=== PATIENT | female | born 1940 | race Caucasian/White ===

== ENCOUNTER 2017-06-19 09:51 | Inpatient (IN) | payer MEDICARE, MEDICAID ==
[~2017-06-19] VITALS: Ht 175.3 cm; Wt 80.7 kg
--- NOTE | 2017-06-19 10:13 | NUR ---
PT IS IN ROOM #2B. DR CASTELLANOS EVALUATED THE PT.
[2017-06-19 10:56] LABS: BASOPHILS % (AUTO) 0.9 % (0.0-2.0); EOSINOPHILS # (AUTO) 0.1 K/uL (0.0-0.7); EOSINOPHILS % (AUTO) 2.5 % (0.0-7.0); HEMATOCRIT 39.5 % (31.2-41.9); HEMOGLOBIN 13.7 g/dL (10.9-14.3); LYMPHOCYTES # (AUTO) 0.8 K/uL (20.0-40.0); LYMPHOCYTES % (AUTO) 17.6 % (20.5-51.5); MEAN CORPUSCULAR HEMOGLOBIN 30.7 uug (24.7-32.8); MEAN CORPUSCULAR HGB CONC 35 g/dL (32.3-35.6); MEAN CORPUSCULAR VOLUME 88.8 fL (75.5-95.3); MONOCYTES # (AUTO) 0.3 K/uL (2.0-10.0); MONOCYTES % (AUTO) 6.7 % (0.0-11.0); NEUTROPHILS # (AUTO) 3.2 K/uL (1.8-8.9); NEUTROPHILS % (AUTO) 72.3 % (38.5-71.5); PLATELET COUNT (AUTO) 248 K/uL (179-408); RED BLOOD CELL COUNT(AUTO) 4.45 MIL/uL (3.63-4.92); WHITE BLOOD COUNT (AUTO) 4.4 K/uL (3.8-11.8)
[2017-06-19 11:16] LABS: ETHANOL < 3 MG/DL (0-0)
[2017-06-19 12:18] LABS: CARBON DIOXIDE 29 mmol/L (21-32); CHLORIDE 104 mmol/L (98-107); CREATININE 0.9 mg/dL (0.6-1.3); GLUCOSE 99 mg/dL (74-106); POTASSIUM 4.4 mmol/L (3.5-5.1); UREA NITROGEN, BLOOD 12 mg/dL (7-18)
[2017-06-19 12:22] LABS: ALANINE AMINOTRANSFERASE 17 U/L (14-59); ALKALINE PHOSPHATASE 88 U/L (50-136); ASPARTATE AMINOTRANSFERASE 18 U/L (15-37); BILIRUBIN,DIRECT 0.2 mg/dL (0.0-0.2); BILIRUBIN,TOTAL 1.2 mg/dL (0.2-1.0); TOTAL PROTEIN, SERUM 7.3 g/dL (6.4-8.2)
[2017-06-19 12:23] LABS: ACETAMINOPHEN < 2.0 ug/mL (10-30)
[2017-06-19] MEDS ORDERED: ATOR10TA PO (12:37)
[2017-06-19 12:55] LABS: *BILIRUBIN,URIN NEGATIVE (NEGATIVE); *BLOOD, URINE NEGATIVE (NEGATIVE); *CLARITY,URINE CLEAR (CLEAR); *COLOR,URINE YELLOW (YELLOW); *KETONES,URINE NEGATIVE (NEGATIVE); *PROTEIN,URINE NEGATIVE (NEGATIVE); *UROBILINOGEN,URINE 0.2 E.U./dl (NORMAL); LEUKOCYTE ESTERASE ,URINE TRACE (NEGATIVE); NITRITE, URINE NEGATIVE (NEGATIVE); UGLUCOSE NEGATIVE (NEGATIVE)
[2017-06-19 12:59] LABS: RBC,URINE 0-3 /HPF (0-3)
[2017-06-19 13:00] LABS: BACTERIA,URINE NONE SEEN /HPF (NONE SEEN); MUCUS,URINE FEW /LPF (0-FEW); RENAL EPITHELIAL CELLS,URINE FEW /LPF (NONE SEEN); SQUAMOUS EPITHELIAL CELL,UR FEW /HPF (NONE SEEN)
--- NOTE | 2017-06-19 13:12 | NUR ---
REPORT WAS GIVEN TO ERNESTIAN M/S. PT WAS TRANSFERDD TO M/S ROOM #219.
--- NOTE | 2017-06-19 14:00 | NUR ---
Admission Note: Patient was received from the emergency room, and admitted to floor. Patient is able to ambulate to the bathroom. Son Armando Anguiano [phone], stated he wants patient to be sent to SNF, stated he is the advance directive person to be notified and power of [employer] of her property. He states he wants everything done for the patient, Charge Nurse states there is a POLST, and patient is DNR.
[2017-06-19 14:23] VITALS: BP 145/71
[2017-06-19 15:52] LABS: *AMPHETAMINE, URINE NEGATIVE (NEGATIVE); *BARBITURATE, URINE NEGATIVE (NEGATIVE); *CANNABINOID, URINE NEGATIVE (NEGATIVE); *COCCAINE, URINE NEGATIVE (NEGATIVE); *OPIATE, URINE NEGATIVE (NEGATIVE); *PHENCYCLIDINE SCREEN,URINE NEGATIVE (NEGATIVE)
[2017-06-19] MEDS ORDERED: ZOLPIDEM 5 MG TABLET PO PRN (17:30)
[2017-06-19] MEDS ORDERED: ACETAMINOPHEN 325 MG TABLET PO PRN (17:30)
[2017-06-19] MEDS ORDERED: ONDANSETRON 4 MG/2 ML VIAL IV PRN (17:30)
[2017-06-19 20:00] VITALS: BP 146/59
--- NOTE | 2017-06-19 20:00 | NUR ---
PT IS AWAKE IN BED, DENIES PAIN OR DISCOMFORT. SHE'S NOTED WITH MILD CONFUSION. CALL LIGHT WITHIN PT'S REACH, BED ALARM ON, WILL CONTINUE TO MONITOR PT
[2017-06-19] MEDS: SIMVASTATIN 20 MG TABLET PO SCH (21:31)
[2017-06-19] MEDS: ENOXAPARIN SODIUM 40 MG/0.4 ML DISP.SYRIN SQ SCH (21:33)
--- NOTE | 2017-06-20 | NUR ---
PT IS ASLEEP WITH NO S/S OF PAIN, OR RESP DISTRESS. ALL SAFETY MEASURES IN PLACE, NO SIGNIFICANT CHANGES IN STATUS AT PRESENT. WILL CONTINUE TO MONITOR PT
[2017-06-20 05:20] VITALS: BP 132/58
[2017-06-20 06:41] LABS: BASOPHILS % (AUTO) 0.5 % (0.0-2.0); EOSINOPHILS # (AUTO) 0.2 K/uL (0.0-0.7); EOSINOPHILS % (AUTO) 3.2 % (0.0-7.0); HEMATOCRIT 44.3 % (31.2-41.9); HEMOGLOBIN 15.4 g/dL (10.9-14.3); LYMPHOCYTES # (AUTO) 1.2 K/uL (20.0-40.0); LYMPHOCYTES % (AUTO) 22.7 % (20.5-51.5); MEAN CORPUSCULAR HEMOGLOBIN 30.7 uug (24.7-32.8); MEAN CORPUSCULAR HGB CONC 35 g/dL (32.3-35.6); MEAN CORPUSCULAR VOLUME 88.6 fL (75.5-95.3); MONOCYTES # (AUTO) 0.4 K/uL (2.0-10.0); MONOCYTES % (AUTO) 7.9 % (0.0-11.0); NEUTROPHILS # (AUTO) 3.5 K/uL (1.8-8.9); NEUTROPHILS % (AUTO) 65.7 % (38.5-71.5); PLATELET COUNT (AUTO) 308 K/uL (179-408); WHITE BLOOD COUNT (AUTO) 5.3 K/uL (3.8-11.8)
[2017-06-20 06:49] LABS: ALANINE AMINOTRANSFERASE 21 U/L (14-59); ALKALINE PHOSPHATASE 102 U/L (50-136); ASPARTATE AMINOTRANSFERASE 18 U/L (15-37); BILIRUBIN,TOTAL 1.5 mg/dL (0.2-1.0); CARBON DIOXIDE 29 mmol/L (21-32); CHLORIDE 102 mmol/L (98-107); CREATININE 1.1 mg/dL (0.6-1.3); GLUCOSE 102 mg/dL (74-106); MAGNESIUM 2.1 mg/dL (1.8-2.4); PHOSPHOROUS 3.7 mg/dL (2.5-4.9); POTASSIUM 4.1 mmol/L (3.5-5.1); UREA NITROGEN, BLOOD 15 mg/dL (7-18)
--- NOTE | 2017-06-20 06:52 | NUR ---
PT CONTINUES TO SLEEP WITH NO EVIDENCE OF PAIN OR DISTRESS. SAFETY MEASURES IN PLACE, ALL NEEDS MET
[2017-06-20 06:57] LABS: THYROID STIMULATING HORMONE 5.163 mIU/mL (0.358-3.740)
--- NOTE | 2017-06-20 07:30 | NUR ---
Received report from night nurse. Patient stable, awake in bed. no s/s acute distress. call light is within reach. will continue to monitor.
[2017-06-20 08:13] LABS: TOTAL PROTEIN, SERUM 8.7 g/dL (6.4-8.2)
[2017-06-20] MEDS: ASPIRIN 325 MG TABLET PO SCH (10:31)
[2017-06-20 11:05] VITALS: BP 111/54
--- NOTE | 2017-06-20 14:30 | NUR ---
patient stable, VSS. no s/s acute distress. pts son is at bedside. son brought in original POLST and copies of power of corporate associate attorney documents. all documents placed in chart. belongings list also updated with items brought in by son. will continue to monitor.
[2017-06-20 15:20] VITALS: BP 112/64
--- NOTE | 2017-06-20 19:00 | NUR ---
Received report from day shift nurse. Patient awake, alert sitting on the chair at bedside. Denies any pain/discomforts at this time. Will continue to monitor.
[2017-06-20 20:00] VITALS: BP 109/59
[2017-06-20] MEDS: ENOXAPARIN SODIUM 40 MG/0.4 ML DISP.SYRIN SQ SCH (21:06)
[2017-06-20] MEDS: SIMVASTATIN 20 MG TABLET PO SCH (21:08)
[2017-06-20] MEDS: ATORVASTATIN 10 MG TABLET PO SCH (21:08)
--- NOTE | 2017-06-20 21:14 | NUR ---
Confused and disoriented to place. Tends to wander from room to room. Reorientation rendered to place. Will continue to monitor.
[2017-06-21 04:56] VITALS: BP 150/63
--- NOTE | 2017-06-21 06:05 | NUR ---
Pt been awake the whole night, reading her devotion book or walking in the hallway. Denies any pain/discomfort. no significant event reported all night. Patient so disoriented to place and situation. Kept asking the same question over and over. Continue to monitor.
--- NOTE | 2017-06-21 08:00 | NUR ---
CONFUSED X3, WANDERS AROUND CLOSELY MONITORED
[2017-06-21] MEDS: ASPIRIN 325 MG TABLET PO SCH (08:47)
[2017-06-21] MEDS: FOLIC ACID 1 MG TABLET PO SCH (08:48)
[2017-06-21 11:04] VITALS: BP 115/59
--- NOTE | 2017-06-21 12:00 | NUR ---
PATIENT VERY CONFUSED, KEEPS GOING ROOM BY ROOM. REDIRECTED TO ROOM AT ALL TIMES
[2017-06-21 15:03] VITALS: BP 122/64
--- NOTE | 2017-06-21 15:53 | NUR ---
DISCHARGE PLANNING INITIATED, TREE FALLER SPOKE WITH SON ABOUT PLAN
--- NOTE | 2017-06-21 19:10 | NUR ---
Patient seen ambulating in the hallway in steady gait. No SOB/SOBOE presented. Denies any pain/discomforts at this time. Confused and disoriented, kept asking where her purse and shoes was. Close vision supervision rendered.
[2017-06-21 20:34] VITALS: BP 132/68
[2017-06-21] MEDS: ATORVASTATIN 10 MG TABLET PO SCH (20:52)
[2017-06-21] MEDS: SIMVASTATIN 20 MG TABLET PO SCH (20:52)
[2017-06-21] MEDS: ENOXAPARIN SODIUM 40 MG/0.4 ML DISP.SYRIN SQ SCH (20:53)
[2017-06-22 04:00] VITALS: BP 133/59
--- NOTE | 2017-06-22 06:13 | NUR ---
Awake the whole night. In and out her room ambulating in the hallway. Refused sleeping meds offered last night. No complaint presented all night. Continue current plan of care.
--- NOTE | 2017-06-22 08:00 | NUR ---
SEEN BY DR MIR WITH DC ORDER TO SNF, DIRECTOR OF CASINO MADE AWARE AND CONTACTED SON
[2017-06-22] MEDS: FOLIC ACID 1 MG TABLET PO SCH (08:26)
[2017-06-22] MEDS: ASPIRIN 325 MG TABLET PO SCH (08:26)
[2017-06-22 08:30] LABS: BASOPHILS % (AUTO) 0.7 % (0.0-2.0); EOSINOPHILS # (AUTO) 0.2 K/uL (0.0-0.7); EOSINOPHILS % (AUTO) 2.7 % (0.0-7.0); HEMATOCRIT 39.9 % (31.2-41.9); HEMOGLOBIN 13.7 g/dL (10.9-14.3); LYMPHOCYTES # (AUTO) 1.1 K/uL (20.0-40.0); LYMPHOCYTES % (AUTO) 15.9 % (20.5-51.5); MEAN CORPUSCULAR HEMOGLOBIN 30.8 uug (24.7-32.8); MEAN CORPUSCULAR HGB CONC 34 g/dL (32.3-35.6); MEAN CORPUSCULAR VOLUME 89.6 fL (75.5-95.3); MONOCYTES # (AUTO) 0.5 K/uL (2.0-10.0); MONOCYTES % (AUTO) 7.4 % (0.0-11.0); NEUTROPHILS # (AUTO) 5.2 K/uL (1.8-8.9); NEUTROPHILS % (AUTO) 73.3 % (38.5-71.5); PLATELET COUNT (AUTO) 221 K/uL (179-408); RED BLOOD CELL COUNT(AUTO) 4.45 MIL/uL (3.63-4.92)
[2017-06-22 08:41] LABS: ALANINE AMINOTRANSFERASE 24 U/L (14-59); ALKALINE PHOSPHATASE 102 U/L (50-136); ASPARTATE AMINOTRANSFERASE 25 U/L (15-37); BILIRUBIN,TOTAL 1.5 mg/dL (0.2-1.0); CARBON DIOXIDE 25 mmol/L (21-32); CHLORIDE 101 mmol/L (98-107); GLUCOSE 97 mg/dL (74-106); MAGNESIUM 2.2 mg/dL (1.8-2.4); PHOSPHOROUS 3.5 mg/dL (2.5-4.9); POTASSIUM 3.9 mmol/L (3.5-5.1); TOTAL PROTEIN, SERUM 8.1 g/dL (6.4-8.2); UREA NITROGEN, BLOOD 18 mg/dL (7-18)
[2017-06-22] MEDS ORDERED: FOLI1TAB16 PO (08:50)
[2017-06-22] MEDS ORDERED: ZOLP5TAB8 PO (08:50)
[2017-06-22] MEDS ORDERED: ASPI-612 PO (08:50)
[2017-06-22 11:02] VITALS: BP 136/58
--- NOTE | 2017-06-22 12:00 | NUR ---
AWAITING PLACEMENT CALL FROM SON PER CLINICAL ENGINEER
[2017-06-22 17:26] VITALS: BP 119/60
--- NOTE | 2017-06-22 18:11 | NUR ---
TO [facility] FOR CONTINUITY OF CARE
== END 2017-06-22 18:15 | DRG 69 ==
LOC: ER 09:51 → MED 12:24
PROVIDERS: ADMIT Internal Medicine; ATTEND Internal Medicine
DX: G45.9 Transient cerebral ischemic attack, unspecified (principal); F01.50 Vascular dementia, unspecified severity, without behavioral disturbance, psychotic disturbance, mood disturbance, and anxiety; I67.2 Cerebral atherosclerosis; E53.8 Deficiency of other specified B group vitamins; N39.0 Urinary tract infection, site not specified; Z66 Do not resuscitate; R29.6 Repeated falls; R47.9 Unspecified speech disturbances; R26.81 Unsteadiness on feet; M19.90 Unspecified osteoarthritis, unspecified site; I10 Essential (primary) hypertension; Z79.899 Other long term (current) drug therapy; R94.6 Abnormal results of thyroid function studies
CPT/HCPCS: 36415; 70450; 80307; 82746; 83735; 84100; 84443; 84480; 85025; 86592; 87077; 87086; 92523; 92610; 93880; 97116; 97530; A4663; G0480; G0480-TC; J1650